=== PATIENT | female | born 1940 | race Caucasian/White ===

== ENCOUNTER 2022-01-26 09:47 | Outpatient (CLI) | payer MEDICARE, SELFPAY ==
[2022-01-26 19:48] LABS: Hemoglobin A1C 6.3 % (<5.7)
[2022-01-26 20:07] LABS: Alanine Aminotransferase 15 U/L (6-35); Albumin Level 3.9 g/dL (3.5-5.1); Alkaline Phosphatase 541 U/L (38-126); Anion Gap 11 mmol/L (8-16); Aspartate Amino Transferase 31 U/L (14-36); Bilirubin,Total 0.7 mg/dL (0.2-1.3); Blood Urea Nitrogen 12 mg/dL (7-17); Calcium 8.7 mg/dL (8.4-10.2); Carbon Dioxide 26 mmol/L (22-30); Chloride 102 mmol/L (98-107); Cholesterol 123 mg/dL (0-200); Estimated Glomerular Filt Rate > 60; Glucose 141 mg/dL (65-110); HDL Direct 56 mg/dL; Potassium 3.6 mmol/L (3.4-5.0); Sodium 139 mmol/L (137-145); Triglycerides 123 mg/dL (<150)
[2022-01-26 20:27] LABS: LDL Cholesterol Direct < 30 mg/dL
== END 2022-01-26 09:48 | disposition home or self-care (01) ==
LOC: ANHGOSHLAB 09:50
PROVIDERS: PCP Family Medicine; Visit Provider Family Medicine
DX: E11.9 Type 2 diabetes mellitus without complications (principal); E78.5 Hyperlipidemia, unspecified; I10 Essential (primary) hypertension
CPT/HCPCS: 36415; 80053; 80061; 83036

== ENCOUNTER 2023-02-02 10:13 | Outpatient (CLI) | payer MEDICARE, SELFPAY ==
[2023-02-02 13:18] LABS: Hemoglobin A1C 6.4 % (<5.7)
[2023-02-02 13:26] LABS: Alanine Aminotransferase 16 U/L (6-35); Albumin Level 3.6 g/dL (3.5-5.1); Alkaline Phosphatase 736 U/L (38-126); Anion Gap 8 mmol/L (8-16); Aspartate Amino Transferase 32 U/L (14-36); Bilirubin,Total 0.7 mg/dL (0.2-1.3); Blood Urea Nitrogen 11 mg/dL (7-17); Calcium 7.5 mg/dL (8.4-10.2); Carbon Dioxide 25 mmol/L (22-30); Chloride 107 mmol/L (98-107); Cholesterol 116 mg/dL (0-200); Estimated Glomerular Filt Rate > 60; Glucose 128 mg/dL (65-110); HDL Direct 55 mg/dL; Potassium 4.1 mmol/L (3.4-5.0); Sodium 140 mmol/L (137-145); Triglycerides 99 mg/dL (<150)
[2023-02-02 13:37] LABS: LDL Cholesterol Direct 42 mg/dL
[2023-02-07 07:48] LABS: GGT 24 U/L (3-65)
== END 2023-02-02 10:14 | disposition home or self-care (01) ==
PROVIDERS: PCP Family Medicine; Visit Provider Family Medicine
DX: R74.8 Abnormal levels of other serum enzymes (principal); Z13.228 Encounter for screening for other metabolic disorders; E11.9 Type 2 diabetes mellitus without complications; Z13.220 Encounter for screening for lipoid disorders
CPT/HCPCS: 36415; 80053; 80061; 82977; 83036

== ENCOUNTER 2024-02-25 10:54 | Outpatient (CLI) | payer MEDICARE, SELFPAY ==
[2024-02-25 13:44] LABS: Alanine Aminotransferase 11 U/L (6-35); Albumin Level 3.7 g/dL (3.5-5.1); Alkaline Phosphatase 913 U/L (38-126); Anion Gap 7 mmol/L (4-12); Aspartate Amino Transferase 33 U/L (14-36); Bilirubin,Total 0.6 mg/dL (0.2-1.3); Blood Urea Nitrogen 20 mg/dL (7-17); Carbon Dioxide 26 mmol/L (22-30); Chloride 109 mmol/L (98-107); Cholesterol 146 mg/dL (0-200); Estimated Glomerular Filt Rate > 60; Glucose 118 mg/dL (65-110); HDL Direct 52 mg/dL; Potassium 4.2 mmol/L (3.4-5.0); Sodium 142 mmol/L (137-145); Triglycerides 126 mg/dL (<150)
[2024-02-25 13:55] LABS: LDL Cholesterol Direct 63 mg/dL
== END 2024-02-25 10:55 | disposition home or self-care (01) ==
LOC: ANHGOSHLAB 10:55
PROVIDERS: PCP Family Medicine; Visit Provider Family Medicine
DX: E11.9 Type 2 diabetes mellitus without complications (principal); E66.9 Obesity, unspecified; Z13.220 Encounter for screening for lipoid disorders; Z13.228 Encounter for screening for other metabolic disorders
CPT/HCPCS: 36415; 80053; 80061; 83036

== ENCOUNTER 2024-03-21 13:39 | Outpatient (CLI) | payer MEDICARE, SELFPAY ==
[2024-03-21 16:51] LABS: Alanine Aminotransferase 12 U/L (6-35); Albumin Level 3.9 g/dL (3.5-5.1); Alkaline Phosphatase 777 U/L (38-126); Anion Gap 10 mmol/L (4-12); Aspartate Amino Transferase 44 U/L (14-36); Bilirubin,Total 0.8 mg/dL (0.2-1.3); Blood Urea Nitrogen 14 mg/dL (7-17); Calcium 7.4 mg/dL (8.4-10.2); Carbon Dioxide 27 mmol/L (22-30); Chloride 103 mmol/L (98-107); Estimated Glomerular Filt Rate > 60; Glucose 145 mg/dL (65-110); Sodium 140 mmol/L (137-145)
[2024-03-21 17:13] LABS: Parathyroid Intact 477.7 pg/mL (14.5-75.2)
[2024-03-21 17:21] LABS: Vitamin D 25 Hydroxy < 12.8 ng/mL
[2024-03-24 11:04] LABS: Ionized Calcium 4.2 mg/dL (4.7-5.5)
== END 2024-03-21 13:40 | disposition home or self-care (01) ==
LOC: ANHGOSHLAB 13:41
PROVIDERS: PCP Family Medicine; Visit Provider Family Medicine
DX: E83.51 Hypocalcemia (principal); Z13.228 Encounter for screening for other metabolic disorders
CPT/HCPCS: 36415; 80053; 82306; 82330; 83970